=== PATIENT | female | born 2000 | race Two or more races ===

== ENCOUNTER 2023-10-13 16:08 | Emergency (ER) | payer OTHER ==
[~2023-10-13] VITALS: Ht 188 cm; Wt 61.2 kg
[2023-10-13 17:00] VITALS: BP 114/72; TEMP 98.4; O2SAT 100
[2023-10-13 18:24] LABS: PREGNANCY TEST URINE QUAL NEGATIVE (NEGATIVE)
[2023-10-13 18:27] LABS: APPEARANCE,URINE SLIGHTLY CLOUDY (CLEAR); BILIRUBIN,URINE 1+ (NEGATIVE); BLOOD, URINE 3+ Ery/uL (NEGATIVE); COLOR,URINE AMBER (YELLOW); KETONES,URINE TRACE mg/dL (NEGATIVE); LEUKOCYTE ESTERASE ,URINE TRACE (NEGATIVE); NITRITE, URINE NEGATIVE (NEGATIVE); PH,URINE 5.5 (5.0-8.0); PROTEIN,URINE 2+ mg/dl (NEGATIVE); UGLUCOSE NEGATIVE (NEGATIVE)
[2023-10-13 18:39] LABS: ADD URINE CULTURE NO; BACTERIA,URINE 1+ /HPF (None Seen); RBC,URINE TOO NUMEROUS TO COUN /HPF (0-2); SQUAMOUS EPITHELIAL CELL,UR Few /HPF (None Seen)
[2023-10-13] MEDS ORDERED: ACET-2605 PO (19:07)
[2023-10-13] MEDS ORDERED: IBUP-1957 PO (19:07)
== END 2023-10-13 20:32 | disposition home or self-care (01) ==
LOC: ER 16:34
DX: N94.6 Dysmenorrhea, unspecified (principal); Z91.040 Latex allergy status
CPT/HCPCS: 76856-TC; 81001; 84703-TC